=== PATIENT | male | born 1990 | race African-American/Black ===

== ENCOUNTER 2016-08-15 20:43 | Emergency (ER) | payer OTHER ==
[~2016-08-15] VITALS: Ht 185.4 cm; Wt 81.6 kg
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
[2016-08-15 21:39] VITALS: BP 146/72
== END 2016-08-15 21:48 | disposition short-term general hospital (02) ==
LOC: ERH 20:43
DX: S01.80XA Unspecified open wound of other part of head, initial encounter (principal); S21.4 Open wound of back wall of thorax with penetration into thoracic cavity; W34.00XA Accidental discharge from unspecified firearms or gun, initial encounter
CPT/HCPCS: 90471